=== PATIENT | female | born 1960 | race Caucasian/White ===

== ENCOUNTER 2020-06-24 11:46 | Emergency (ER) | payer OTHER ==
[~2020-06-24] VITALS: Ht 167.6 cm; Wt 52.2 kg
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
--- NOTE | 2020-06-24 12:04 | NUR ---
Dr Mortensen at the bedside for MSE.
--- NOTE | 2020-06-24 12:18 | NUR ---
COVID specieman swab collected and sent to LAB.
--- NOTE | 2020-06-24 12:27 | NUR ---
[employer] officers at the bedside for report.
[2020-06-24 13:06] VITALS: BP 102/56
--- NOTE | 2020-06-24 13:12 | NUR ---
Patient discharged to home in stable condition. Written and verbal after care instructions given. Patient verbalizes understanding of instructions. Stressed follow up or return to ER for worsening s/s.
== END 2020-06-24 13:13 | disposition home or self-care (01) ==
LOC: ER 11:48
DX: F41.9 Anxiety disorder, unspecified (principal); R68.83 Chills (without fever); R05 Cough; Z20.822 Contact with and (suspected) exposure to COVID-19
CPT/HCPCS: A4663

== ENCOUNTER 2021-12-22 23:11 | Emergency (ER) | payer OTHER ==
[~2021-12-22] VITALS: Ht 170.2 cm; Wt 54.4 kg
--- NOTE | 2021-12-22 23:33 | NUR ---
Dr. Hicks at bedside for MSE.
[2021-12-23 00:02] LABS: *BILIRUBIN,URIN NEGATIVE (NEGATIVE); *CLARITY,URINE CLEAR (CLEAR); *COLOR,URINE YELLOW (YELLOW); *KETONES,URINE NEGATIVE (NEGATIVE); *UROBILINOGEN,URINE 0.2 E.U./dl (NORMAL); LEUKOCYTE ESTERASE ,URINE NEGATIVE (NEGATIVE); NITRITE, URINE NEGATIVE (NEGATIVE); UGLUCOSE NEGATIVE (NEGATIVE)
[2021-12-23 00:03] LABS: *BLOOD, URINE TRACE (NEGATIVE)
[2021-12-23 00:04] LABS: BACTERIA,URINE FEW /HPF (NONE SEEN); SQUAMOUS EPITHELIAL CELL,UR NONE SEEN /HPF (NONE SEEN); WBC,URINE 0-3 /HPF (0-3)
--- NOTE | 2021-12-23 00:42 | NUR ---
Patient discharged to home in stable condition. Written and verbal after care instructions given. Patient verbalizes understanding of instructions. Stressed follow up or return to ER for worsening s/s. Patient out of ER with steady gait, no acute signs of distress, VSS, all belongings taken.
[2021-12-23 00:43] VITALS: BP 132/73
== END 2021-12-23 00:43 | disposition home or self-care (01) ==
LOC: ER 23:13
DX: R39.198 Other difficulties with micturition (principal); F17.210 Nicotine dependence, cigarettes, uncomplicated
CPT/HCPCS: 87086

== ENCOUNTER 2022-10-30 17:34 | Emergency (ER) | payer OTHER ==
[~2022-10-30] VITALS: Ht 170.2 cm; Wt 49.9 kg
[2022-10-30] MEDS ORDERED: MORPHINE SULFATE 2 MG/1 ML DISP.SYRIN IV ONE (20:00)
[2022-10-30] MEDS ORDERED: ONDANSETRON 4 MG/2 ML VIAL IV ONE (20:00)
[2022-10-30] MEDS ORDERED: IV NORMAL SALINE 1000 ML BAG IV ONE (20:00)
[2022-10-30 20:13] LABS: HEMATOCRIT 37.9 % (31.2-41.9); MEAN CORPUSCULAR HEMOGLOBIN 30.1 uug (24.7-32.8); MEAN CORPUSCULAR VOLUME 91.2 fL (75.5-95.3); PLATELET COUNT (AUTO) 252 K/uL (179-408)
[2022-10-30 20:25] LABS: CREATININE 0.8 mg/dL (0.6-1.3); POTASSIUM 3.7 mmol/L (3.5-5.1)
[2022-10-30 20:30] LABS: BILIRUBIN,DIRECT 0.1 mg/dL (0.0-0.2); BILIRUBIN,TOTAL 0.5 mg/dL (0.2-1.0); TOTAL PROTEIN, SERUM 7.2 g/dL (6.4-8.2)
--- NOTE | 2022-10-30 20:33 | NUR ---
RECEIVED PT A/OX4. PT HAS F/C WITH SMALL AMT OF CLR NIGLE URINE(NOT ENOUGH YET FOR A SPECIMEN). PT HAS C/O PAIN R/T F/C INSERTION. PT RATES PAIN AT 7-11/20. PT HAS IV MS ORDER. PT INFORMED THAT AN IV INSERTION IS NEEDED. RESPS REG/UNLAB. PT ON RA. PT CONT. TO RECEIVE ER/MED-EVAL AND TX. JARON [email or web address]
[2022-10-30] MEDS ORDERED: IOHEXOL 300MG/ML 100 ML INFUS..BTL ONE (22:06)
[2022-10-30] MEDS ORDERED: IV NORMAL SALINE 250 ML IV ONE (22:06)
[2022-10-30] MEDS ORDERED: SWABABLE VALVE TRANSFER SET EA MC ONE (22:06)
[2022-10-30] MEDS ORDERED: PHEN-705 PO (23:24)
[2022-10-30] MEDS ORDERED: NITR100C11 PO (23:24)
[2022-10-31 01:19] VITALS: BP 113/73; O2SAT 98
[2022-10-31 06:19] LABS: *BILIRUBIN,URIN NEGATIVE (NEGATIVE); *CLARITY,URINE CLEAR (CLEAR); *COLOR,URINE YELLOW (YELLOW); *KETONES,URINE NEGATIVE (NEGATIVE); *UROBILINOGEN,URINE 0.2 E.U./dl (NORMAL); LEUKOCYTE ESTERASE ,URINE NEGATIVE (NEGATIVE); NITRITE, URINE NEGATIVE (NEGATIVE); UGLUCOSE NEGATIVE (NEGATIVE)
[2022-10-31 06:33] LABS: *BLOOD, URINE NEGATIVE (NEGATIVE)
== END 2022-10-30 20:45 | disposition home or self-care (01) ==
LOC: ER 17:34
DX: R32 Unspecified urinary incontinence (principal); N30.20 Other chronic cystitis without hematuria; F17.210 Nicotine dependence, cigarettes, uncomplicated; Z79.899 Other long term (current) drug therapy
CPT/HCPCS: 99285; 74177; 96374; 71045; 96361; 96375; 80076; 80048; 81003; 83690; 85025; 85730; 36415; 93005; 51702; 87040; J2405; Q9967; J2270; J7040; A4663

== ENCOUNTER 2022-11-13 16:39 | Emergency (ER) | payer OTHER ==
[~2022-11-13] VITALS: Ht 167.6 cm; Wt 49.9 kg
[~2022-11-13 16:39] MED LIST: NITR100C11 PO; PHEN-705 PO
[2022-11-13] MEDS ORDERED: CEPH500C2 PO (19:30)
[2022-11-13 19:47] LABS: *BILIRUBIN,URIN NEGATIVE (NEGATIVE); *BLOOD, URINE 2+ (NEGATIVE); *CLARITY,URINE SLIGHTLY CLOUDY (CLEAR); *COLOR,URINE YELLOW (YELLOW); *KETONES,URINE NEGATIVE (NEGATIVE); *PROTEIN,URINE 1+ (NEGATIVE); LEUKOCYTE ESTERASE ,URINE TRACE (NEGATIVE); NITRITE, URINE NEGATIVE (NEGATIVE); PH,URINE 7.5 (5.0-8.0); UGLUCOSE NEGATIVE (NEGATIVE)
[2022-11-13 19:52] VITALS: BP 127/70; O2SAT 98
[2022-11-13 20:13] LABS: BACTERIA,URINE MANY /HPF (NONE SEEN); RBC,URINE 20-50 /HPF (0-3)
[2022-11-13 20:14] LABS: SQUAMOUS EPITHELIAL CELL,UR FEW /HPF (NONE SEEN)
[2022-11-13 20:15] LABS: URINE AMORPHOUS URATE MODERATE /HPF
== END 2022-11-13 19:52 | disposition home or self-care (01) ==
LOC: ER 16:39
DX: T83.091A Other mechanical complication of indwelling urethral catheter, initial encounter (principal); N30.20 Other chronic cystitis without hematuria; F17.210 Nicotine dependence, cigarettes, uncomplicated; Z79.899 Other long term (current) drug therapy
CPT/HCPCS: 51702; A4663